=== PATIENT | male | born 1945 | race Caucasian/White ===

== ENCOUNTER → 2025-02-19 10:15 | Outpatient (REF) | payer MEDICARE, SELFPAY | LOC: HWEVLT 10:15 | PROVIDERS: ATTENDING PHYSICIAN Radiology Diagnostic Radiology | DX: I83.892 Varicose veins of left lower extremity with other complications (principal) | CPT/HCPCS: 93971 ==

== ENCOUNTER → 2025-04-18 07:46 | Outpatient (REF) | payer MEDICARE, SELFPAY | LOC: HWEVLT 07:46 | PROVIDERS: ATTENDING PHYSICIAN Radiology Diagnostic Radiology | DX: I83.892 Varicose veins of left lower extremity with other complications (principal) | CPT/HCPCS: 36478; C1769 ==

== ENCOUNTER → 2025-04-30 11:00 | Outpatient (REF) | payer MEDICARE, SELFPAY | LOC: HWEVLT 11:00 | PROVIDERS: ATTENDING PHYSICIAN Radiology Vascular & Interventional Radiology | DX: I83.893 Varicose veins of bilateral lower extremities with other complications (principal) | CPT/HCPCS: 93970 ==